=== PATIENT | female | born 1995 | race Caucasian/White ===

== ENCOUNTER 2016-07-17 20:10 | Inpatient (IN) | payer OTHER ==
[~2016-07-17 20:10] MED LIST: COLACE100 MG PO; IBUPROFEN600 MG PO; NORCO 5-325 TA1 EACH PO; PRAMET FA TAB1 EA PO
[2016-07-17 21:45] LABS: HEMOGLOBIN 13.3 gm/dl (12.3-15.3); RED BLOOD COUNT 4.8 M/UL (4.00-5.10); WHITE BLOOD COUNT 12.8 K/UL (4.5-11.0)
[2016-07-19 03:25] LABS: HEMOGLOBIN 11.3 gm/dl (12.3-15.3)
== END 2016-07-19 15:54 | disposition home or self-care (01) | DRG 775 ==
LOC: GENOP 20:10 → OB 21:23
PROVIDERS: Obstetrics & Gynecology; ADMIT Obstetrics & Gynecology
PROC: 10907ZC Drainage of Amniotic Fluid, Therapeutic from Products of Conception, Via Natural or Artificial Opening (ICD-10-PCS; principal; 2016-07-18)
PROC: 10E0XZZ Delivery of Products of Conception, External Approach (ICD-10-PCS; principal; 2016-07-18)
DX: O80 Encounter for full-term uncomplicated delivery (principal); Z3A.39 39 weeks gestation of pregnancy; Z37.0 Single live birth; R53.1 Weakness; R20.0 Anesthesia of skin; Z87.440 Personal history of urinary (tract) infections; Z28.21 Immunization not carried out because of patient refusal
CPT/HCPCS: 36415; 51702; 81001; 82800; 83518; 85014; 85018; 85025; J2405; J2590; J2795; J3010; J7120